=== PATIENT | male | born 1955 | race Caucasian/White ===

== ENCOUNTER 2022-07-15 12:49 | Emergency (ER) | payer OTHER, SELFPAY ==
[2022-07-15 13:46] VITALS: BP 207/93; PULSE 83; RESP 16; TEMP 36.8; O2SAT 100; BMI 27.3
--- NOTE | 2022-07-15 13:59 | DI.RAD.S_ITS ---
PROCEDURE: XR KNEE RT 3V INDICATIONS: red hot right knee TECHNIQUE: 3 views of the knee were acquired. COMPARISON: None. FINDINGS: Bones: No fractures or dislocations. No suspicious bony lesions. Medial compartmental joint space narrowing present with small joint effusion noted. Suprapatellar enthesophyte and prepatellar soft tissue swelling present. Soft tissues: No suspicious soft tissue calcifications. IMPRESSION: Prepatellar soft tissue swelling may reflect bursitis. Medial compartmental joint space narrowing. No lytic lesion. Approved by: Aden Hemphill M.D. on 07/15/2022 at 14:14
[2022-07-15 15:32] LABS: Add Manual Diff / Slide Review NO; Basophils Absolute Auto 0 /uL (0-100); Basophils Percent Auto 0.2 % (0-2); Eosinophils Absolute Auto 0 /uL (0-450); Eosinophils Percent Auto 0.3 % (2-4); Hematocrit 40.8 % (41-53); Hemoglobin 14.4 g/dL (13.5-17.5); Lymphocytes Absolute Auto 1800 /uL (1100-4500); Lymphocytes Percent Auto 20.9 % (25-40); Mean Corpuscular HGB Conc 35.2 % (30-36); Mean Corpuscular Hemoglobin 34.6 PG (26-34); Mean Corpuscular Volume 98.4 fL (80-100); Monocytes Absolute Auto 900 /uL (0-900); Neutrophils Absolute Auto 6000 /uL (1500-7000); Neutrophils Percent Auto 68.6 % (50-75); Platelet Count 380 X10^3/uL (150-400); Red Blood Cell Count 4.15 X10^6/uL (4.5-5.9); White Blood Cell Count 8.8 X10^3/uL (4.5-11.0)
[2022-07-15 15:56] LABS: Erythrocyte Sedimentation Rate 7 MM/HR (0-15)
[2022-07-15 16:13] LABS: Prothrombin Time 11.2 SECONDS (10.1-12.7)
[2022-07-15 16:15] LABS: PTT Partial Thromboplastin Tim 30 SECONDS (26-36)
[2022-07-15 16:21] LABS: Alanine Aminotransferase 36 IU/L (<50); Albumin Globulin Ratio 1.2 (1.0-2.8); Alkaline Phosphatase 78 U/L (38-126); Aspartate Aminotransferase 37 IU/L (17-59); BUN Creatinine Ratio 25.5 (6-22); Bilirubin Total 0.8 mg/dL (0.2-1.3); Blood Urea Nitrogen 24 mg/dL (9-20); Calcium 9.8 mg/dL (8.4-10.2); Carbon Dioxide 26 mmol/L (22-32); Chloride 97 mmol/L (98-107); Estimated Glomerular Filt Rate > 60 mL/min (>60); Globulin 4.2 g/dL (1.7-4.1); Glucose 100 mg/dL (80-110); HEMOLYSIS < 15 (0-50); Lipase 118 U/L (23-300); Potassium 4.7 mmol/L (3.4-5.1); Sodium 139 mmol/L (137-145); Total Protein 9.2 g/dL (6.3-8.2)
[2022-07-15 16:37] LABS: Procalcitonin 0.06 ng/mL (<0.5)
--- NOTE | 2022-07-15 16:44 | ED.EXTPRO ---
HPI - Extremity Problem General Chief complaint: Extremity Problem,Nontraumatic Stated complaint: Sent for poss bacterial infection Time Seen by Provider: 07/15/22 16:05 Source: patient Mode of arrival: Ambulatory History of Present Illness HPI Narrative: Patient is a 66-year-old male history of hypertension presenting today with right knee pain redness and swelling. He was diagnosed with bursitis at walk-in clinic a couple weeks ago and put on 1 week of Bactrim. He said it cleared up completely. He finished the Bactrim 1 week ago yesterday he started to notice some swelling and redness and went in again today. Sent here for further evaluation. He has not had any fever chills. It does sometimes hurt to walk but he is able to do so. He says sometimes he crawls in and out of a scissor lift, but is not on his knees often. He usually stands. Related Data Previous Rx's Medication Instructions Recorded hydrocodone 5 mg-acetaminophen 325 1 tab PO Q6H PRN pain #10 tabs 07/15/22 mg tablet sulfamethoxazole 800 1 tab PO BID 10 days #20 tabs 07/15/22 mg-trimethoprim 160 mg tablet (Bactrim DS) Review of Systems Review of Systems Narrative: GENERAL: Denies chills, fatigue, malaise, fever, sweats, travel HEENT: Denies sinus pain, ear pain, sore throat, difficulty swallowing, neck pain RESPIRATORY: Denies dyspnea, cough, wheezing, hemoptysis, sputum. CARDIOVASCULAR: Denies chest pain, palpitations, orthopnea, edema GASTROINTESTINAL: Denies nausea, vomiting, abdominal pain, diarrhea, constipation, melena. : Denies dysuria, frequency, incontinence, hematuria, urinary retention, flank pain. MUSCULOSKELETAL: See HPI SKIN: See HPI NEUROLOGIC: Denies weakness, dizziness, headache, numbness, change in speech, confusion PSYCHIATRIC: No concerning psychosocial issues. 12 point review of systems is negative except for those stated above and HPI Patient History Social History Smoking Status: Current every day smoker Smoking Status: Current every day smoker tobacco type: e-cigarettes alcohol intake frequency: 0-2 drinks per day Substance Use Type: does not use Exam Initial Vital Signs Initial Vital Signs: Vital Signs Temperature 98.2 F 07/15/22 13:46 Pulse Rate 83 07/15/22 13:46 Respiratory Rate 16 07/15/22 13:46 Blood Pressure 207/93 H 07/15/22 13:46 Pulse Oximetry 100 07/15/22 13:46 Oxygen Delivery Method 07/15/22 13:46 GENERAL: Alert pleasant 66-year-old male and in no acute distress. HEENT: Head atraumatic,EOMI, pupils reactive, face symmetric, moist mucous membranes CARDIOVASCULAR: Regular rate and rhythm without murmurs, rubs or gallops. RESPIRATORY: Breath sounds equal bilaterally, no wheezes rales or rhonchi. EXTREMITIES: Normal range of motion, no clubbing or edema. Neurovascularly intact Right knee mild erythema and swelling morbid patellar bursitis. He is able to flex and extend. Good strong distal pedal pulse. NEUROLOGICAL: Alert and oriented x4. SKIN: Minimal erythema over patella. Course Orders Ordered: ED Orders 07/15/22 13:59 XR knee RT 3V Stat 07/15/22 15:19 Complete Blood Count AUTO DIFF Stat Erythrocyte Sedimentation Rate Stat 07/15/22 15:55 Blood Culture Stat CRP [C-Reactive Protein Quant] Stat Comprehensive Metabolic Panel Stat Lactate (Lactic Acid) Stat Lipase Stat Partial Thromboplastin Time Stat Procalcitonin Stat Prothrombin Time INR Stat Discontinued Medications Sodium Chloride (Normal Saline 0.9%) 1,000 mls @ 1,000 mls/hr IV BOLUS ONE Stop: 07/15/22 14:56 Last Admin: 07/15/22 17:03 Dose: Not Given Documented By: SALVATORE Ketorolac Tromethamine (Ketorolac 30 Mg/Ml Vial) 15 mg IV NOW ONE Stop: 07/15/22 16:52 Last Admin: 07/15/22 17:08 Dose: 15 mg Documented By: SALVATORE Morphine Sulfate (Morphine 2 Mg/Ml Inj) 2 mg IV NOW ONE Stop: 07/15/22 16:52 Last Admin: 07/15/22 17:08 Dose: 2 mg Documented By: SALVATORE Vital Signs Vital signs: Vital Signs - 8 hr 07/15/22 13:46 07/15/22 17:15 Temperature 98.2 F Pulse Rate 83 84 Respiratory Rate 16 12 Blood Pressure 207/93 H 190/106 H Pulse Oximetry 100 100 Oxygen Delivery Method Room Air Room Air MDM - Extremity (Nontraumatic) Lab Data Result diagrams: 07/15/22 15:19 07/15/22 15:55 Labs: Lab Results 07/15/22 07/15/22 07/15/22 Range/Units 15:19 15:19 15:55 WBC 8.8 (4.5-11.0) X10^3/uL RBC 4.15 L (4.5-5.9) X10^6/uL Hgb 14.4 (13.5-17.5) g/dL Hct 40.8 L (41-53) % MCV 98.4 (80-100) fL MCH 34.6 H (26-34) PG MCHC 35.2 (30-36) % RDW 14.0 (11.6-14.8) % Plt Count 380 (150-400) X10^3/uL Neut % (Auto) 68.6 (50-75) % Lymph % (Auto) 20.9 L (25-40) % [place] % (Auto) 10.0 (3-14) % Eos % (Auto) 0.3 L (2-4) % Baso % (Auto) 0.2 (0-2) % Neut # (Auto) 6000 (9222-8175) /uL Lymph # (Auto) 1800 (7772-0261) /uL Roosevelt # (Auto) 900 (0-900) /uL Eos # (Auto) 0 (0-450) /uL Baso # (Auto) 0 (0-100) /uL ESR 7 (0-15) MM/HR PT (10.1-12.7) SECONDS INR (0.9-1.3) APTT (26-36) SECONDS Sodium 139 (137-145) mmol/L Potassium 4.7 (3.4-5.1) mmol/L Chloride 97 L (98-107) mmol/L Carbon Dioxide 26 (22-32) mmol/L BUN 24 H (9-20) mg/dL Creatinine 0.94 (0.66-1.25) mg/dL Estimated GFR > 60 (>60) mL/min BUN/Creatinine Ratio 25.5 H (6-22) Glucose 100 (80-110) mg/dL Lactate (0.7-2.1) mmol/L Calcium 9.8 (8.4-10.2) mg/dL Total Bilirubin 0.8 (0.2-1.3) mg/dL AST 37 (17-59) IU/L ALT 36 (<50) IU/L Alkaline Phosphatase 78 (38-126) U/L C-Reactive Protein (<1.0) mg/dL Total Protein 9.2 H (6.3-8.2) g/dL Albumin 5.0 (3.5-5.0) g/dL Globulin 4.2 H (1.7-4.1) g/dL Albumin/Globulin Ratio 1.2 (1.0-2.8) Lipase 118 (23-300) U/L Procalcitonin 0.06 (<0.5) ng/mL 07/15/22 07/15/22 07/15/22 Range/Units 15:55 15:55 15:55 WBC (4.5-11.0) X10^3/uL RBC (4.5-5.9) X10^6/uL Hgb (13.5-17.5) g/dL Hct (41-53) % MCV (80-100) fL MCH (26-34) PG MCHC (30-36) % RDW (11.6-14.8) % Plt Count (150-400) X10^3/uL Neut % (Auto) (50-75) % Lymph % (Auto) (25-40) % Roosevelt % (Auto) (3-14) % Eos % (Auto) (2-4) % Baso % (Auto) (0-2) % Neut # (Auto) (2138-6303) /uL Lymph # (Auto) (8399-6822) /uL Roosevelt # (Auto) (0-900) /uL Eos # (Auto) (0-450) /uL Baso # (Auto) (0-100) /uL ESR (0-15) MM/HR PT 11.2 (10.1-12.7) SECONDS INR 1.0 (0.9-1.3) APTT 30 (26-36) SECONDS Sodium (137-145) mmol/L Potassium (3.4-5.1) mmol/L Chloride (98-107) mmol/L Carbon Dioxide (22-32) mmol/L BUN (9-20) mg/dL Creatinine (0.66-1.25) mg/dL Estimated GFR (>60) mL/min BUN/Creatinine Ratio (6-22) Glucose (80-110) mg/dL Lactate 1.9 (0.7-2.1) mmol/L Calcium (8.4-10.2) mg/dL Total Bilirubin (0.2-1.3) mg/dL AST (17-59) IU/L ALT (<50) IU/L Alkaline Phosphatase (38-126) U/L C-Reactive Protein 0.9 (<1.0) mg/dL Total Protein (6.3-8.2) g/dL Albumin (3.5-5.0) g/dL Globulin (1.7-4.1) g/dL Albumin/Globulin Ratio (1.0-2.8) Lipase (23-300) U/L Procalcitonin (<0.5) ng/mL Imaging Data Extremity x-ray #1: Radiologist's Impression: Signed Patient: Ambrose Gregory MR#: [id number] : 1955 Acct:[id number] Age/Sex: 66 / M Date of Service: 07/15/22 Loc: ED Accession Number: [id number] ?? Procedure: XR knee RT 3V Ordering Provider: So Valero D.O. PROCEDURE:? XR KNEE RT 3V ? INDICATIONS:? red hot right knee ? TECHNIQUE:? 3 views of the knee were acquired.? ? COMPARISON:? None. ? FINDINGS:? ? Bones:? No fractures or dislocations.? No suspicious bony lesions.? Medial compartmental joint space narrowing present with small joint effusion noted.? Suprapatellar enthesophyte and prepatellar soft tissue swelling present. ? Soft tissues: ? No suspicious soft tissue calcifications.? ? ? IMPRESSION:? ? Prepatellar soft tissue swelling may reflect bursitis. ? Medial compartmental joint space narrowing.? No lytic lesion. ? ? ? Approved by: Aden Hemphill M.D. on 07/15/2022 at 14:14? [facility] Narrative Medical decision making narrative: Patient sent here concern for possible septic knee. However ever patient is afebrile he is ambulatory on it. Blood work is overall reassuring. He has no leukocytosis normal ESR normal CRP. At this time I do not feel strongly that this is a septic knee. Probably more of a bursitis. It is mildly erythematous. It did clear up with Bactrim will start him back on Bactrim along with NSAIDs. He says he is having a hard time sleeping will give him a couple hydrocodone to help him sleep. At this time I see no need for further workup Discharge Plan Departure Patient Disposition: Home Clinical Impression: Bursitis Instructions: DI for Bursitis Activity Restrictions/Additional Instructions: *You have been diagnosed with bursitis *What to do: At this time will do the same antibiotic for little bit longer this time. Elevate ice, try and stay off knee *Continue to take medications as directed Bactrim 1 tablet twice a day for 10 Ibuprofen 600 mg every 6 hours if needed for [id number] pain [place] 1 tablet every 6 hours only if needed for severe pain *Follow up with your primary care provider in 2-3 days or call [phone] *Return to ER if you should have increasing pain swelling redness inability to walk or any new, worsening or concerning symptoms Prescriptions: New hydrocodone-acetaminophen 5-325 mg tablet 1 tab PO Q6H PRN (Reason: pain) Qty: 10 0RF sulfamethoxazole-trimethoprim [Bactrim DS] 800-160 mg tablet 1 tab PO BID 10 Days Qty: 20 0RF Visit Report Forms: Patient Portal/API
--- NOTE | 2022-07-15 16:48 | PC.NURSE ---
Completed course of Sulfa abx 9 days ago. Patient states he had window of improvement. Now increase redness, pain
[2022-07-15 16:49] LABS: C-Reactive Protein Quant 0.9 mg/dL (<1.0)
[2022-07-15] MEDS: KETOROLAC 30 MG/ML VIAL 15 MG IV (17:08)
[2022-07-15] MEDS: MORPHINE 2 MG/ML INJ IV (17:08)
[2022-07-15 17:09] LABS: Lactate (Lactic Acid) 1.9 mmol/L (0.7-2.1)
[2022-07-15 17:15] VITALS: BP 190/106; PULSE 84; RESP 12; O2SAT 100
== END 2022-07-15 17:27 | disposition home or self-care (01) ==
PROVIDERS: Emergency Provider Emergency Medicine
DX: M70.51 Other bursitis of knee, right knee (principal)
CPT/HCPCS: 36415; 73562; 80053; 83605; 83690; 84145; 85025; 85610; 85651; 85730; 86140; 87040; 96374; 96375; 99283; 99284; J1885; J2270